=== PATIENT | male | born 1985 | race Caucasian/White ===

== ENCOUNTER 2019-04-29 06:36 | Emergency (ER) | payer OTHER, BC, SELFPAY ==
[2019-04-29 06:38] VITALS: BP 138/80; PULSE 94; RESP 14; TEMP 36; O2SAT 98; BMI 25.0
--- NOTE | 2019-04-29 07:32 | ED.VISSUMM ---
- ER Visit Summary Date of Service: 04/29/19 Chief Complaint: [Laceration left forearm] History of Present Illness: The patient is a 34 M [presents to the emergency department with a laceration to his left forearm sustained this morning while at work. Patient states that a wound up coil unblinded and struck him on the left forearm lacerating it. Patient unsure of his last tetanus shot. Patient is right-hand dominant.] Physical Examination: [Left forearm-patient has a 5 cm L-shaped laceration over the mid forearm. Laceration extends through the fat and superficially into the muscle. There is no weakness of the extremity in flexion extension at the wrist or fingers. Neurovascularly intact with normal station will cap refill. No foreign bodies noted within the wound.] Test Results: [None indicated] Emergency Department Course and Treatment: [Laceration repair-wound sterilely draped and prepped. Wound cleansed with Shur-Clens and irrigated with copious saline. Wound anesthetized locally with 1% lidocaine total 5 cc. Using 5-0 Vicryl 1 single interrupted suture placed to the perimysium approximated. Using 5-0 nylon a total of 9 single ruptured sutures placed with good wound edge approximation and patient tolerated procedure well. Clean dressing was applied. Patient was given Keflex 500 mg p.o. Patient was given tetanus booster.] Treatment Plan: [Given that the laceration extends into the muscle I will treat him with Keflex for 10 days. Patient to follow-up in 10 days for suture removal with [facility].] Disposition: [Discharged home in stable condition.] Impression: [Left forearm laceration 5 cm-simple repair] This note was generated with [employer] dictation software. It may contain incorrect words, spelling, and punctuation that were not noted in review of the chart prior to signing ED Disposition - Plan for ED Patient: Referrals: Care Physician,No Primary [Primary Care Provider] -
--- NOTE | 2019-04-29 07:36 | ED.DEP ---
ED Disposition - Plan for ED Patient: Instructions: LACERATION, Extrem (Suture, Staple or Tape) Prescriptions: Cephalexin [Keflex] 500 mg PO Q6 #40 cap Transmission Status: Pending to [id number] Referrals: Care Physician,No Primary [Primary Care Provider] - [facility] [GROUP OF PHYSICIANS] - 10 Day for suture removal
[2019-04-29] MEDS: Diphth,Pertuss(Acell),Tet Vac 0.5 ML Vial IM (07:52)
[2019-04-29] MEDS: Cephalexin 250 MG Capsule 500 MG PO (07:52)
[2019-04-29 07:54] VITALS: BP 137/81; PULSE 81; RESP 16; O2SAT 99
== END 2019-04-29 08:04 | disposition home or self-care (01) ==
LOC: ED 07:49
PROVIDERS: Emergency Provider Emergency Medicine
DX: S51.812A Laceration without foreign body of left forearm, initial encounter (principal); W31.9XXA Contact with unspecified machinery, initial encounter; Y92.89 Other specified places as the place of occurrence of the external cause; Y99.0 Civilian activity done for income or pay; F90.9 Attention-deficit hyperactivity disorder, unspecified type; Z23 Encounter for immunization
CPT/HCPCS: 12002; 90471; 90715; 99282